=== PATIENT | male | born 1975 | race Caucasian/White ===

== ENCOUNTER 2018-05-09 11:25 | Observation (INO) | payer OTHER, SELFPAY ==
[~2018-05-09] VITALS: Ht 167.6 cm; Wt 109.8 kg
[~2018-05-09 11:25] MED LIST: ATOR40TA PO; Chantix0.5 MG PO; FURO40 PO; LISI20; LISI20 PO; METO100ER; METO50ER PO; Micro-K10 MEQ PO; Vanquish Caple1 EACH PO
[2018-05-09 12:05] LABS: BASOPHILS ABSOLUTE AUTO 0.02 K/mm3 (0.00-0.23); BASOPHILS PERCENT AUTO 0 % (0-2); EOSINOPHILS ABSOLUTE AUTO 0.16 K/mm3 (0.00-0.68); EOSINOPHILS PERCENT AUTO 3 % (0-6); Hematocrit 37.5 % (37.0-53.0); Hemoglobin 12.4 g/dL (13.5-17.5); IMMATURE GRAN ABSOLUTE AUTO 0.01 K/mm3 (0.00-0.10); IMMATURE GRAN PERCENT AUTO 0 % (0-1); LYMPHOCYTES PERCENT AUTO 19 % (21-46); MONOCYTES ABSOLUTE AUTO 0.57 K/mm3 (0.16-1.47); MONOCYTES PERCENT AUTO 11 % (4-13); Mean Corpuscular HGB 34.8 pg (26.0-34.0); Mean Corpuscular HGB Conc 33.1 g/dL (31.5-36.5); Mean Corpuscular Volume 105 fL (80-100); Mean Platelet Volume 12.2 fL (9.1-12.4); NEUTROPHILS ABSOLUTE AUTO 3.44 K/mm3 (1.96-9.15); NEUTROPHILS PERCENT AUTO 66 % (41-73); Platelet Count 102 K/mm3 (150-400); RDW Coefficient Variation 16.4 % (11.7-14.2); RDW Standard Deviation 64.9 fL (35.1-46.3); Red Blood Cell Count 3.56 M/mm3 (4.30-5.90)
[2018-05-09 12:37] LABS: Albumin, Blood 4.4 g/dL (3.4-5.0); Albumin/Globulin Ratio 0.8 (0.8-1.8); Bilirubin, Total 1.4 mg/dL (0.1-1.0); Bun/Creatinine Ratio 26.3 (12.0-20.0); Calcium, Blood 8.5 mg/dL (8.5-10.1); Creatinine, Blood 2.13 mg/dL (0.60-1.20); Globulin, Blood 5.5 g/dL (2.2-4.0); Total Protein, Blood 9.9 g/dL (6.4-8.2)
[2018-05-09 12:39] LABS: Potassium, Blood 6.5 mmol/L (3.5-5.5)
[2018-05-09] MEDS ORDERED: SPIR25 PO (12:55)
[2018-05-09] MEDS ORDERED: FURO40 PO (15:45)
[2018-05-09] MEDS ORDERED: CARV6.25 PO (15:47)
[2018-05-09] MEDS ORDERED: K-Tab10 MEQ PO (15:48)
[2018-05-09] MEDS ORDERED: ALBU90OI61 INH (15:52)
[2018-05-09 17:32] LABS: Bun/Creatinine Ratio 23.8 (12.0-20.0); Calcium, Blood 9.3 mg/dL (8.5-10.1); Creatinine, Blood 2.31 mg/dL (0.60-1.20); Potassium, Blood 5.7 mmol/L (3.5-5.5)
[2018-05-10 04:38] LABS: Bun/Creatinine Ratio 28.4 (12.0-20.0); Calcium, Blood 8.4 mg/dL (8.5-10.1); Creatinine, Blood 2.25 mg/dL (0.60-1.20); Potassium, Blood 6.7 mmol/L (3.5-5.5)
[2018-05-10 12:35] LABS: Bun/Creatinine Ratio 27.9 (12.0-20.0); Calcium, Blood 8.6 mg/dL (8.5-10.1); Creatinine, Blood 2.22 mg/dL (0.60-1.20); Potassium, Blood 5.6 mmol/L (3.5-5.5)
[2018-05-10] MEDS ORDERED: ATOR40TA PO (13:01)
== END 2018-05-10 13:37 | disposition home or self-care (01) ==
LOC: ER 11:25 → PCU 11:26
PROVIDERS: Emergency Medicine; Hospitalist; Internal Medicine
DX: E87.5 Hyperkalemia (principal); T50.0X5A Adverse effect of mineralocorticoids and their antagonists, initial encounter; I25.5 Ischemic cardiomyopathy; I25.10 Atherosclerotic heart disease of native coronary artery without angina pectoris; I13.10 Hypertensive heart and chronic kidney disease without heart failure, with stage 1 through stage 4 chronic kidney disease, or unspecified chronic kidney disease; N18.3 Chronic kidney disease, stage 3 (moderate); D63.1 Anemia in chronic kidney disease; G47.33 Obstructive sleep apnea (adult) (pediatric); D69.6 Thrombocytopenia, unspecified; I72.9 Aneurysm of unspecified site; Z79.899 Other long term (current) drug therapy; Z87.891 Personal history of nicotine dependence
CPT/HCPCS: 36415; 80048; 80053; 85025; 93005; 93010; 96372; 99284-25; G0378; J0610; J1650; J1815; J1940

== ENCOUNTER 2018-06-26 08:53 | Emergency (ER) | payer OTHER, SELFPAY ==
[~2018-06-26] VITALS: Ht 167.6 cm; Wt 109.8 kg
[~2018-06-26 08:53] MED LIST changes: +ALBU90OI61 INH; +CARV6.25 PO; +K-Tab10 MEQ PO; +SPIR25 PO
[2018-06-26] MEDS ORDERED: ASPI325EC PO (09:50)
[2018-06-26] MEDS ORDERED: ENTRESTO 24 MG1 EACH PO (09:50)
[2018-06-26] MEDS ORDERED: MULTIVITAMIN W1 EACH PO (09:51)
== END 2018-06-26 11:30 | disposition home or self-care (01) ==
LOC: ER 08:53
DX: M25.561 Pain in right knee (principal); I50.9 Heart failure, unspecified; Z91.030 Bee allergy status; Z91.048 Other nonmedicinal substance allergy status; Z79.899 Other long term (current) drug therapy; Z79.82 Long term (current) use of aspirin; Z79.51 Long term (current) use of inhaled steroids
CPT/HCPCS: 73562-RT; 99283-25

== ENCOUNTER → 2019-05-30 | Outpatient (CLI) | payer MEDICARE, OTHER ==
[~2019-05-30] MED LIST changes: +ASPI325EC PO; +ENTRESTO 24 MG1 EACH PO; +MULTIVITAMIN W1 EACH PO
[2019-05-30 13:19] LABS: Body Fluid Crystals NEG (NEGATIVE)
== END | disposition home or self-care (01) ==
LOC: LAB 12:20 → LAB SHORT 12:20
PROVIDERS: Family Medicine
DX: M10.9 Gout, unspecified (principal)
CPT/HCPCS: 89060

== ENCOUNTER 2020-01-07 16:12 | Emergency (ER) | payer OTHER ==
[~2020-01-07] VITALS: Ht 167.6 cm; Wt 132.0 kg
[2020-01-07] MEDS ORDERED: TORSE20 PO (17:48)
[2020-01-07] MEDS ORDERED: MITIGARE0.6 MG PO (17:49)
[2020-01-07] MEDS ORDERED: FISH OIL 1,001000 MG PO (17:51)
[2020-01-07] MEDS ORDERED: ALLO100 PO (17:51)
[2020-01-07 18:18] LABS: Base Excess Venous 6.7 mmol/L; Bicarbonate Venous 29.6 mmol/L (24.0-30.0); PCO2 Venous 44.2 mmHg (38-42); PO2 Venous 103 mmHg (38-42); pH Blood Venous 7.45 (7.34-7.37)
[2020-01-07 18:22] LABS: BASOPHILS ABSOLUTE AUTO 0.04 K/mm3 (0.00-0.23); BASOPHILS PERCENT AUTO 1 % (0-2); EOSINOPHILS PERCENT AUTO 3 % (0-6); Hematocrit 46.4 % (37.0-53.0); Hemoglobin 16.5 g/dL (13.5-17.5); IMMATURE GRAN ABSOLUTE AUTO 0.02 K/mm3 (0.00-0.10); IMMATURE GRAN PERCENT AUTO 0 % (0-1); LYMPHOCYTES ABSOLUTE AUTO 1.26 K/mm3 (0.84-5.20); LYMPHOCYTES PERCENT AUTO 18 % (21-46); MONOCYTES ABSOLUTE AUTO 0.63 K/mm3 (0.16-1.47); MONOCYTES PERCENT AUTO 9 % (4-13); Mean Corpuscular HGB 37.2 pg (26.0-34.0); Mean Corpuscular HGB Conc 35.6 g/dL (31.5-36.5); Mean Corpuscular Volume 105 fL (80-100); NEUTROPHILS ABSOLUTE AUTO 4.85 K/mm3 (1.96-9.15); NEUTROPHILS PERCENT AUTO 69 % (41-73); Platelet Count 70 K/mm3 (150-400); RDW Coefficient Variation 14.3 % (11.7-14.2); RDW Standard Deviation 55.1 fL (35.1-46.3); Red Blood Cell Count 4.44 M/mm3 (4.30-5.90)
[2020-01-07 18:28] LABS: Mean Platelet Volume 13.7 fL (9.1-12.4)
[2020-01-07 18:46] LABS: Alanine Aminotransfer (ALT/SGP 98 U/L (12-78); Albumin, Blood 4.2 g/dL (3.4-5.0); Albumin/Globulin Ratio 0.9 (0.8-1.8); Alk Phos 232 U/L (50-136); Anion Gap 7 mmol/L (6-16); Aspartate Aminotrans (AST/SGOT 72 U/L (12-37); Bilirubin, Total 1.4 mg/dL (0.1-1.0); Blood Urea Nitrogen 29 mg/dL (8-24); CO2, Blood 29 mmol/L (21-32); Calcium, Blood 9.3 mg/dL (8.5-10.1); Chloride, Blood 89 mmol/L (98-108); Creatinine, Blood 1.16 mg/dL (0.60-1.20); Globulin, Blood 4.7 g/dL (2.2-4.0); Glomerular Filtration Rate >60 (60-); Glucose, Blood 497 mg/dL (70-99); Potassium, Blood 4.3 mmol/L (3.5-5.5); Sodium, Blood 125 mmol/L (136-145); Total Protein, Blood 8.9 g/dL (6.4-8.2)
[2020-01-07 18:53] LABS: Beta-hydroxybutyrate 1.2 mg/dL (0.2-2.8)
[2020-01-07 19:24] LABS: Bilirubin, Urine Neg (Neg); Blood, Urine 2+ (Neg); Glucose Qualitative, Urine 4+ (Neg); Ketones, Urine Neg (Neg); Leukocyte Esterase, Urine Neg (Neg); Nitrite, Urine Neg (Neg); Protein, Urine 2+ (Neg); Specific Gravity, Urine 1.015 (1.003-1.022); Urobilinogen, Urine NORM (Normal)
[2020-01-07 19:32] LABS: Appearance, Urine Clear (Clear); Color, Urine Yellow (P-Yellow)
[2020-01-07 19:33] LABS: White Blood Cells, Urine Not Seen /hpf (0-5)
[2020-01-07 19:34] LABS: Bacteria Rare /hpf; Squamous Epithelial Cells Not Seen /hpf (Few)
[2020-01-07] MEDS ORDERED: METF500 PO (19:56)
== END 2020-01-07 20:35 | disposition home or self-care (01) ==
LOC: ER 16:12
PROVIDERS: Emergency Medicine
DX: E11.65 Type 2 diabetes mellitus with hyperglycemia (principal); E11.22 Type 2 diabetes mellitus with diabetic chronic kidney disease; N18.3 Chronic kidney disease, stage 3 (moderate); I50.9 Heart failure, unspecified; I25.10 Atherosclerotic heart disease of native coronary artery without angina pectoris; G47.33 Obstructive sleep apnea (adult) (pediatric); Z91.030 Bee allergy status; Z91.048 Other nonmedicinal substance allergy status; Z79.899 Other long term (current) drug therapy; Z79.82 Long term (current) use of aspirin; Z79.51 Long term (current) use of inhaled steroids; Z87.891 Personal history of nicotine dependence
CPT/HCPCS: 36415; 80053; 81001; 82010; 82803; 82947; 85025; 96360; 99285-25; J1815; J7030

== ENCOUNTER → 2021-06-08 | Outpatient (CLI) | payer OTHER ==
[~2021-06-08] MED LIST changes: +ALLO100 PO; +FISH OIL 1,001000 MG PO; +METF500 PO; +MITIGARE0.6 MG PO; +TORSE20 PO
[2021-06-08 10:22] LABS: BASOPHILS ABSOLUTE AUTO 0.03 K/mm3 (0.00-0.23); BASOPHILS PERCENT AUTO 1 % (0-2); EOSINOPHILS ABSOLUTE AUTO 0.17 K/mm3 (0.00-0.68); EOSINOPHILS PERCENT AUTO 4 % (0-6); Hematocrit 45.9 % (37.0-53.0); Hemoglobin 15.6 g/dL (13.5-17.5); IMMATURE GRAN ABSOLUTE AUTO 0.01 K/mm3 (0.00-0.10); IMMATURE GRAN PERCENT AUTO 0 % (0-1); LYMPHOCYTES ABSOLUTE AUTO 1.31 K/mm3 (0.84-5.20); LYMPHOCYTES PERCENT AUTO 27 % (21-46); MONOCYTES ABSOLUTE AUTO 0.53 K/mm3 (0.16-1.47); MONOCYTES PERCENT AUTO 11 % (4-13); Mean Corpuscular HGB 36.2 pg (26.0-34.0); Mean Corpuscular Volume 107 fL (80-100); Mean Platelet Volume 12.2 fL (9.1-12.4); NEUTROPHILS ABSOLUTE AUTO 2.78 K/mm3 (1.96-9.15); NEUTROPHILS PERCENT AUTO 58 % (41-73); Platelet Count 71 K/mm3 (150-400); RDW Coefficient Variation 15.3 % (11.7-14.2); RDW Standard Deviation 60.8 fL (35.1-46.3); Red Blood Cell Count 4.31 M/mm3 (4.30-5.90); White Blood Cell Count 4.83 K/mm3 (4.00-11.30)
[2021-06-08 11:22] LABS: Alanine Aminotransfer (ALT/SGP 72 U/L (12-78); Albumin, Blood 3.8 g/dL (3.4-5.0); Albumin/Globulin Ratio 0.8 (0.8-1.8); Alk Phos 140 U/L (50-136); Anion Gap 4 mmol/L (6-16); Aspartate Aminotrans (AST/SGOT 62 U/L (12-37); Blood Urea Nitrogen 24 mg/dL (8-24); Bun/Creatinine Ratio 22.2 (12.0-20.0); CO2, Blood 31 mmol/L (21-32); Calcium, Blood 9.2 mg/dL (8.5-10.1); Chloride, Blood 98 mmol/L (98-108); Cholesterol 80 mg/dL (50-200); Creatinine, Blood 1.08 mg/dL (0.60-1.20); Free Thyroxine 1.21 ng/dL (0.70-1.60); Globulin, Blood 4.5 g/dL (2.2-4.0); Glomerular Filtration Rate >60 (60-); Glucose, Blood 172 mg/dL (70-99); HDL Cholesterol 27 mg/dL (>39); LDL/HDL RATIO 0.7; Low Density Lipoprotein Chol 20 mg/dL (0-110); Sodium, Blood 133 mmol/L (136-145); Total Protein, Blood 8.3 g/dL (6.4-8.2); Triglycerides 166 mg/dL (30-160); Very Low Density Lipoprot Chol 33 mg/dL (6-32)
== END | disposition home or self-care (01) ==
LOC: LAB SHORT 09:47 → OLS 09:47 → LAB FUT 06-08 09:30
PROVIDERS: Nurse Practitioner Family
DX: E11.22 Type 2 diabetes mellitus with diabetic chronic kidney disease (principal); I12.9 Hypertensive chronic kidney disease with stage 1 through stage 4 chronic kidney disease, or unspecified chronic kidney disease; N18.9 Chronic kidney disease, unspecified; E78.5 Hyperlipidemia, unspecified
CPT/HCPCS: 36415; 80053; 80061; 83036; 83970; 84439; 84443; 85025